=== PATIENT | female | born 1980 | race Caucasian/White ===

== ENCOUNTER 2017-05-22 09:01 | Emergency (ER) | payer OTHER ==
[2017-05-22 09:48] VITALS: BP 132/80
--- NOTE | 2017-05-22 10:09 | UC ---
Throat Pain/Nasal Beau HPI - HPI Summary HPI Summary: 37 yo female with MARY presents with a 5 day hx of sever facial pressure/pain, nasal congestion and post nasal drip upper teeth sensitive ? fever low energy myalgias - History of Current Complaint Chief Complaint: UCRespiratory Stated Complaint: SINUS PRESSURE Time Seen by Provider: 05/22/17 09:50 Hx Obtained From: Patient Hx Last Menstrual Period: 05/11/17 Onset/Duration: Gradual Onset, Lasting Days Severity: Moderate Pain Intensity: 4 Pain Scale Used: 0-10 Numeric Cough: Nonproductive Associated Signs & Symptoms: Positive: Sinus Discomfort, Nasal Discharge, Fever - ? - Epiglottits Risk Factors Epiglottis Risk Factors: Negative - Allergies/Home Medications Allergies/Adverse Reactions: Allergies Allergy/AdvReac Type Severity Reaction Status Date / Time Amoxicillin Allergy Intermediate Rash Verified 05/22/17 09:37 environmental Allergy Congestion Uncoded 05/22/17 09:37 Home Medications: Home Medications Cyclobenzaprine (NF) [Cyclobenzaprine 5 MG (NF)] 5 mg PO QPM PRN 05/22/17 [ History Confirmed 05/22/17] Ibuprofen [Ibuprofen 200 MG] 800 mg PO Q12H PRN 05/22/17 [History Confirmed 09/26] PMH/Surg Hx/FS Hx/Imm Hx Previously Healthy: Yes - Surgical History Surgical History: None - Family History Known Family History: Positive: Hypertension, Other Family History: no family history of cardio-vascular disorders - Social History Alcohol Use: None Substance Use Type: None Smoking Status (MU): Light Every Day Tobacco Smoker Type: Cigarettes Amount Used/How Often: 3-5 per day Length of Time of Smoking/Using Tobacco: 20 yrs Have You Smoked in the Last Year: Yes Review of Systems Constitutional: Fever - ?, Fatigue Skin: Negative Eyes: Negative ENT: Dental Pain, Nasal Discharge, Sinus Congestion, Sinus Pain/Tenderness Respiratory: Negative Cardiovascular: Negative Gastrointestinal: Negative Genitourinary: Negative Motor: Negative Neurovascular: Negative Musculoskeletal: Negative Neurological: Negative Psychological: Negative All Other Systems Reviewed And Are Negative: Yes Physical Exam Triage Information Reviewed: Yes Appearance: Well-Appearing, No Pain Distress, Well-Nourished Vital Signs: Initial Vital Signs Temp 99.1 F 05/22/17 09:29 Pulse 120 05/22/17 09:29 Resp 20 05/22/17 09:29 BP 132/80 05/22/17 09:29 Pulse Ox 97 05/22/17 09:29 Vital Signs Reviewed: Yes Eyes: Positive: Conjunctiva Clear ENT: Positive: Hearing grossly normal, Pharynx normal, Nasal congestion, Nasal drainage, TMs normal, Other: - bilat max sinus tenderness. Negative: Tonsillar exudate, Trismus, Muffled/hoarse voice Dental: Negative: Abscess @ Neck: Positive: Supple, Nontender, No Lymphadenopathy Respiratory: Positive: Lungs clear, Normal breath sounds, No respiratory distress, No accessory muscle use Cardiovascular: Positive: RRR, No Murmur Neurological: Positive: Alert Psychological Exam: Normal Skin Exam: Normal Throat Pain/Nasal Course/Dx - Differential Dx/Diagnosis Provider Diagnoses: acute sinusitis Discharge - Discharge Plan Condition: Stable Disposition: HOME Prescriptions: Cefuroxime Axetil [Ceftin 250 MG] 250 mg PO BID #20 tab Patient Education Materials: Sinusitis (ED) Referrals: Yolanda Colmenares MD [Primary Care Provider] - 5 Days (if not improved) Additional Instructions: warm facial compresses start your flonase
== END 2017-05-22 10:11 | disposition home or self-care (01) ==
LOC: UCCORT 09:01
DX: J01.90 Acute sinusitis, unspecified (principal); Z88.3 Allergy status to other anti-infective agents; F17.210 Nicotine dependence, cigarettes, uncomplicated
CPT/HCPCS: 99212; G0463

== ENCOUNTER 2017-11-19 18:09 | Emergency (ER) | payer OTHER ==
[2017-11-19 20:06] VITALS: BP 126/77
--- NOTE | 2017-11-19 20:23 | UC ---
Respiratory Complaint HPI - HPI Summary HPI Summary: 37 yo female with sinus pressure and pain x >1 wek initially febrile post nasal drip fatigue - History of Current Complaint Chief Complaint: UCGeneralIllness Stated Complaint: RESPIRATORY, SINUS Time Seen by Provider: 11/19/17 20:20 Hx Obtained From: Patient Hx Last Menstrual Period: 11/05/17 Onset/Duration: Sudden Onset Timing: Constant Severity Initially: Mild Severity Currently: Mild Pain Intensity: 4 Pain Scale Used: 0-10 Numeric Character: Cough: Nonproductive Aggravating Factors: Nothing Alleviating Factors: Nothing Associated Signs And Symptoms: Positive: URI, Nasal Congestion, Hoarseness, Sinus Discomfort - Allergies/Home Medications Allergies/Adverse Reactions: Allergies Allergy/AdvReac Type Severity Reaction Status Date / Time amoxicillin Allergy Rash Verified 11/19/17 20:03 environmental Allergy Congestion Uncoded 11/19/17 20:03 Home Medications: Home Medications DULoxetine DR CAP* [Cymbalta CAP*] 60 mg PO DAILY 11/19/17 [History Confirmed ] PMH/Surg Hx/FS Hx/Imm Hx Previously Healthy: Yes - Surgical History Surgical History: None - Family History Known Family History: Positive: Hypertension, Other Family History: no family history of cardio-vascular disorders - Social History Alcohol Use: Rare Substance Use Type: None Smoking Status (MU): Light Every Day Tobacco Smoker Type: Cigarettes Amount Used/How Often: 3-5 per day Length of Time of Smoking/Using Tobacco: 20 yrs Have You Smoked in the Last Year: Yes Review of Systems Constitutional: Negative Skin: Negative Eyes: Negative ENT: Nasal Discharge, Sinus Congestion, Sinus Pain/Tenderness Respiratory: Cough Cardiovascular: Negative Gastrointestinal: Negative Genitourinary: Negative Motor: Negative Neurovascular: Negative Musculoskeletal: Negative Neurological: Negative Psychological: Negative Is Patient Immunocompromised?: No All Other Systems Reviewed And Are Negative: Yes Physical Exam Triage Information Reviewed: Yes Appearance: Well-Appearing, No Pain Distress, Well-Nourished Vital Signs: Initial Vital Signs Temp 98.6 F 11/19/17 19:59 Pulse 98 11/19/17 19:59 Resp 14 11/19/17 19:59 BP 126/77 11/19/17 19:59 Pulse Ox 100 11/19/17 19:59 Vital Signs Reviewed: Yes Eyes: Positive: Conjunctiva Clear ENT: Positive: Hearing grossly normal, Pharynx normal, Nasal congestion, Nasal drainage, TMs normal, Hoarse voice, Sinus tenderness. Negative: Tonsillar swelling, Tonsillar exudate, Trismus, Muffled voice, Dental tenderness, Uvula midline Neck: Positive: Supple, Nontender, No Lymphadenopathy Respiratory: Positive: Lungs clear, Normal breath sounds, No respiratory distress, No accessory muscle use Cardiovascular: Positive: RRR, No Murmur Musculoskeletal: Positive: ROM Intact Neurological: Positive: Alert Psychological Exam: Normal Skin Exam: Normal UC Diagnostic Evaluation - Laboratory O2 Sat by Pulse Oximetry: 100 - normal/not hypoxic Respiratory Course/Dx - Differential Dx/Diagnosis Provider Diagnoses: acute sinusitis Discharge - Discharge Plan Condition: Stable Disposition: HOME Prescriptions: Azithromycin TAB* [Zithromax TAB*] 250 mg PO DAILY #6 tab Patient Education Materials: Sinusitis (ED) Referrals: No Primary Care Phys,NOPCP [Primary Care Provider] - Additional Instructions: recheck for new or worsening symptoms
== END 2017-11-19 20:30 | disposition home or self-care (01) ==
LOC: UCCORT 18:09
DX: J01.90 Acute sinusitis, unspecified (principal); Z87.891 Personal history of nicotine dependence
CPT/HCPCS: 99212; G0463

== ENCOUNTER 2019-05-25 16:25 | Emergency (ER) | payer OTHER ==
[2019-05-25 16:41] VITALS: BP 124/77
--- NOTE | 2019-05-25 16:48 | UC ---
Bite Injury/Animal HPI - HPI Summary HPI Summary: 39-year-old woman comes with a chief complaint of a tick bite with rash to the right forearm. This occurred 3 weeks ago. Patient noticed the bite in her right forearm with a circular erythematous rash and also had a tick in her bed so she believes that the tick bit her in the right forearm. Because was not a bull's-eye rash she didn't think she had Lyme. Over the last week she started feeling ill with sweats body aches and just not feeling well. She has a mild headache and also body aches and now she is feeling like both of her hips are aching. There is no longer a rash on the arm. - History of Current Complaint Chief Complaint: UCSkin Stated Complaint: TICK BITE Time Seen by Provider: 05/25/19 16:34 Hx Last Menstrual Period: IUD Pain Intensity: 4 - Allergies/Home Medications Allergies/Adverse Reactions: Allergies Allergy/AdvReac Type Severity Reaction Status Date / Time amoxicillin Allergy Rash Verified 05/25/19 16:31 environmental Allergy Congestion Uncoded 05/25/19 16:31 PMH/Surg Hx/FS Hx/Imm Hx Previously Healthy: Yes - Surgical History Surgical History: None - Family History Known Family History: Positive: Hypertension, Other Family History: no family history of cardio-vascular disorders - Social History Alcohol Use: Rare Substance Use Type: None Smoking Status (MU): Light Every Day Tobacco Smoker Type: Cigarettes Amount Used/How Often: 10 cigs per day Length of Time of Smoking/Using Tobacco: 20 yrs Have You Smoked in the Last Year: Yes Review of Systems All Other Systems Reviewed And Are Negative: Yes Constitutional: Positive: Other - SEE HPI Skin: Positive: Other - SEE HPI Eyes: Positive: Negative ENT: Positive: Negative Respiratory: Positive: Negative Cardiovascular: Positive: Negative Gastrointestinal: Positive: Negative Genitourinary: Positive: Negative Motor: Positive: Negative Neurovascular: Positive: Negative Musculoskeletal: Positive: Arthralgia, Myalgia Neurological: Positive: Headache Psychological: Positive: Negative Is Patient Immunocompromised?: No Physical Exam Triage Information Reviewed: Yes Appearance: Well-Appearing, No Pain Distress, Well-Nourished Vital Signs: Initial Vital Signs Temp 98.6 F 05/25/19 16:33 Pulse 85 05/25/19 16:33 Resp 18 05/25/19 16:33 BP 124/77 05/25/19 16:33 Pulse Ox 99 05/25/19 16:33 Vital Signs Reviewed: Yes Eye Exam: Normal Eyes: Positive: Conjunctiva Clear ENT: Positive: Pharynx normal, TMs normal Neck: Positive: Supple Respiratory: Positive: Lungs clear, Normal breath sounds, No respiratory distress Cardiovascular: Positive: RRR Musculoskeletal: Positive: Strength Intact, ROM Intact Neurological: Positive: Alert, Muscle Tone Normal Psychological: Positive: Age Appropriate Behavior Skin: Positive: Other - On the right forearm there is a 2 mm punctate slightly darkened pigmented area with the patient reports was the center of the erythematous rash and where the bite occurred. Bite Injury Course/Dx - Course Course Of Treatment: Patient believes that the rash was from a tick bite. It's always possible and she may be suffering from the early stages of Lyme disease at this time. We discussed different possibilities such as drawing a Lyme titer and if positive starting antibiotics versus starting antibiotics and drawing a Lyme titer. Patient prefers to start the antibiotics this time. I let the patient know that if she is not improving she needs to get further evaluation. - Differential Dx/Diagnosis Provider Diagnosis: Tick bite of right forearm Discharge - Sign-Out/Discharge Documenting (check all that apply): Patient Departure All imaging exams completed and their final reports reviewed: No Studies - Discharge Plan Condition: Stable Disposition: HOME Prescriptions: DOXYcycline CAP(*) [DOXYcycline 100MG CAP(*)] 100 mg PO BID #28 cap Patient Education Materials: Lyme Disease (ED), Tick Bite (ED) Referrals: Kristy Singh MD [Primary Care Provider] - Additional Instructions: FOLLOW UP WITH YOUR DOCTOR IF NOT COMPLETELY IMPROVED. GET REEVALUATED SOONER IF WORSE OR ANY QUESTIONS OR CONCERNS. - Billing Disposition and Condition Condition: STABLE Disposition: Home
--- NOTE | 2019-05-29 07:30 | UC ---
- Progress Note Progress Note: Lyme screen results come back from May 25, 2019. The Lyme screen is equivocal. The sample was sent to reference laboratory for confirmatory testing for IgM and IgG. Patient has been treated with doxycycline 100 mg by mouth twice a day 14 days. Nursing to call patient and let them know they should complete the course of doxycycline as directed. Course/Dx - Diagnoses Provider Diagnoses: Tick bite of right forearm Discharge - Sign-Out/Discharge Documenting (check all that apply): Patient Departure All imaging exams completed and their final reports reviewed: No Studies - Discharge Plan Condition: Stable Disposition: HOME Prescriptions: DOXYcycline CAP(*) [DOXYcycline 100MG CAP(*)] 100 mg PO BID #28 cap Patient Education Materials: Lyme Disease (ED), Tick Bite (ED) Referrals: Kristy Singh MD [Primary Care Provider] - Additional Instructions: FOLLOW UP WITH YOUR DOCTOR IF NOT COMPLETELY IMPROVED. GET REEVALUATED SOONER IF WORSE OR ANY QUESTIONS OR CONCERNS. - Billing Disposition and Condition Condition: STABLE Disposition: Home
== END 2019-05-25 16:58 | disposition home or self-care (01) ==
LOC: UCCORT 16:25
DX: S50.861A Insect bite (nonvenomous) of right forearm, initial encounter (principal); W57.XXXA Bitten or stung by nonvenomous insect and other nonvenomous arthropods, initial encounter; Y93.9 Activity, unspecified; Y92.9 Unspecified place or not applicable; F17.210 Nicotine dependence, cigarettes, uncomplicated
CPT/HCPCS: 36415; 86617; 86618; 99212; G0463

== ENCOUNTER 2019-06-21 09:02 | Emergency (ER) | payer OTHER ==
[2019-06-21 10:10] VITALS: BP 123/87
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
== END 2019-06-21 10:53 | disposition home or self-care (01) ==
LOC: UCCORT 09:02
DX: J01.90 Acute sinusitis, unspecified (principal); Z88.0 Allergy status to penicillin; F17.210 Nicotine dependence, cigarettes, uncomplicated
CPT/HCPCS: 99212; G0463

== ENCOUNTER 2019-12-18 14:39 | Emergency (ER) | payer OTHER ==
[2019-12-18 15:16] VITALS: BP 116/74
--- NOTE | 2019-12-18 15:20 | UC ---
Ear Complaint HPI - HPI Summary HPI Summary: RIGHT ear pain since Wednesday. Taking ibuporfen prn w/ pain relief. States couple months ago saw PCP for RIGHT earache and was told she had fluid behind right ear ; rx flonase nasal spray. [ End ] - History of Current Complaint Chief Complaint: UCEar Stated Complaint: EAR COMPLAINT Time Seen by Provider: 12/18/19 15:12 Hx Obtained From: Patient Hx Last Menstrual Period: Mirena IUD ?: No Onset/Duration: Sudden Onset, Lasting Days Severity Initially: Severe Severity Currently: Severe Pain Intensity: 10 - Allergies/Home Medications Allergies/Adverse Reactions: Allergies Allergy/AdvReac Type Severity Reaction Status Date / Time amoxicillin Allergy Rash Verified 12/18/19 15:13 Home Medications: Home Medications Loratadine [Claritin 10 MG CAP] 10 mg PO DAILY PRN 06/08/16 [History Confirmed 12/18/19] DULoxetine DR CAP* [Cymbalta CAP*] 60 mg PO DAILY 11/19/17 [History Confirmed ] Levonorgestrel (IUD) (NF) [Mirena (NF)] 20 mcg IU ONCE 06/21/19 [History Confirmed 12/18/19] Cephalexin CAP* [Keflex CAP*] 500 mg PO BID #20 cap 12/18/19 [Rx] PMH/Surg Hx/FS Hx/Imm Hx Previously Healthy: Yes - Surgical History Surgical History: None - Family History Known Family History: Positive: Hypertension, Other Family History: no family history of cardio-vascular disorders - Social History Alcohol Use: None Substance Use Type: Marijuana Smoking Status (MU): Light Every Day Tobacco Smoker Type: Cigarettes Amount Used/How Often: ~1/2 PPD Length of Time of Smoking/Using Tobacco: Since Age 16 Have You Smoked in the Last Year: Yes Review of Systems All Other Systems Reviewed And Are Negative: Yes Constitutional: Positive: Fever ENT: Positive: Sore Throat, Ear Ache, Nasal Discharge Respiratory: Positive: Cough Is Patient Immunocompromised?: No Physical Exam Triage Information Reviewed: Yes Appearance: Well-Nourished, Ill-Appearing, Pain Distress Vital Signs: Initial Vital Signs Temp 98.9 F 12/18/19 15:13 Pulse 70 12/18/19 15:13 Resp 16 12/18/19 15:13 BP 116/74 12/18/19 15:13 Pulse Ox 99 03/09/20 15:13 Vital Signs Reviewed: Yes Eye Exam: Normal ENT: Positive: Pharyngeal erythema, TM bulging, TM dull - right ear, TM red Dental Exam: Normal Neck: Positive: Enlarged Nodes @ - right cervical and post auricular Respiratory Exam: Normal Cardiovascular Exam: Normal Abdominal Exam: Normal Bowel Sounds: Positive: Present Musculoskeletal Exam: Normal Neurological Exam: Normal Psychological Exam: Normal Skin Exam: Normal Ear Complaint Course/Dx - Course Course Of Treatment: hx obtained, exam performed ,meds reviewed, treated for right otitis - Differential Dx/Diagnosis Differential Diagnosis/HQI/PQRI: Otitis Media Provider Diagnosis: Right otitis media Discharge ED - Sign-Out/Discharge Documenting (check all that apply): Patient Departure All imaging exams completed and their final reports reviewed: No Studies - Discharge Plan Condition: Stable Disposition: HOME Prescriptions: Cephalexin CAP* [Keflex CAP*] 500 mg PO BID #20 cap Patient Education Materials: Ear Infection (ED) Referrals: Kristy Singh MD [Primary Care Provider] - Additional Instructions: 1. take the medication as prescribed. 2. Increase fluid intake 3. Continue with claritin and flonase - Billing Disposition and Condition Condition: STABLE Disposition: Home
== END 2019-12-18 15:28 | disposition home or self-care (01) ==
LOC: UCCORT 14:39
DX: H66.91 Otitis media, unspecified, right ear (principal); J02.9 Acute pharyngitis, unspecified; R05 Cough; Z88.0 Allergy status to penicillin; F17.210 Nicotine dependence, cigarettes, uncomplicated
CPT/HCPCS: 99212; G0463